=== PATIENT | female | born 1955 | race Caucasian/White ===

== ENCOUNTER 2017-01-04 09:00 | Inpatient (IN) | payer OTHER ==
[~2017-01-04] VITALS: Ht 157.5 cm; Wt 67.0 kg
[2017-01-04 09:02] VITALS: BP 156/77; PULSE 97; RESP 15; TEMP 98.1; O2SAT 98
[2017-01-04] MEDS ORDERED: [UNRECOGNIZED DRUG - REMARK] (09:30)
[2017-01-04] MEDS ORDERED: HYDR12.57 PO (09:30)
[2017-01-04] MEDS ORDERED: GENT0.3S2 EACH EYE (09:30)
[2017-01-04] MEDS ORDERED: GENTAMICIN (09:30)
[2017-01-04] MEDS ORDERED: FLUT1SPR5 EACH NARE (09:30)
--- NOTE | 2017-01-04 09:34 | PD ---
HPI Chief Complaint: Fall Time Seen by Provider: 09:34 Travel History International Travel<30 days: No Contact w/Intl Traveler<30days: No Traveled to known affect area: No History of Present Illness HPI 61-year-old female came to the emergency room with history of slip and fall while she was cleaning her pool. She landed on her left outstretched hand. Since then she has severe pain on her left wrist area. There are some deformity. She has tried to splint it with a flip-flop. Patient denies taking any blood thinners. She drank some coffee at 6:30 in the morning but hasn't eaten anything. Vital signs were otherwise stable. She looks uncomfortable. [facility] Past Medical History Narrative Medical List of her past medical, surgical, social and family history is reviewed from the nursing note. ?: Not Past Surgical History Hysterectomy: Yes Social History Tobacco Use: Yes Allergies-Medications (Allergen,Severity, Reaction): Coded Allergies: Levaquin (Verified Allergy, Severe, Swelling, 01/04/17) Penicillin (Verified Allergy, Severe, Rash, 01/04/17) Bactrim (Verified Allergy, Unknown, 01/04/17) Uncoded Allergies: quinalones (Allergy, Severe, Swelling, 01/04/17) Comments List of her allergies reviewed from the nursing note. Reported Meds & Prescriptions Reported Meds & Active Scripts Active Reported [generic nasal spray ] [gentamicin nasal] Gentamicin Opth Drops 0.3% Soln 1 Drop EACH EYE Q6HR Flonase Nasal [place] (Fluticasone Nasal [place]) 50 Mcg/Act [place] 50 Mcg EACH NARE BID Hydrochlorothiazide 12.5 Mg Cap 12.5 Mg PO DAILY Narrative Medication List of her home medications reviewed from the nursing note. Review of Systems Except as stated in HPI: all other systems reviewed are Neg Physical Exam Narrative GENERAL: Awake, alert, moderate distress SKIN: Focused skin assessment warm/dry. HEAD: Atraumatic. Normocephalic. EYES: Pupils equal and round. No scleral icterus. No injection or drainage. ENT: No nasal bleeding or discharge. Mucous membranes pink and moist. NECK: Trachea midline. No JVD. CARDIOVASCULAR: Regular rate and rhythm. No murmur appreciated. RESPIRATORY: No accessory muscle use. Clear to auscultation. Breath sounds equal bilaterally. GASTROINTESTINAL: Abdomen soft, non-tender, nondistended. Hepatic and splenic margins not palpable. MUSCULOSKELETAL: Deformity of the left wrist. No clubbing. No cyanosis. No edema. Distal pulses and sensations intact. Decreased range of motion due to the pain. NEUROLOGICAL: Awake and alert. No obvious cranial nerve deficits. Motor grossly within normal limits. Normal speech. PSYCHIATRIC: Appropriate mood and affect; insight and judgment normal. Data Data Last Documented VS Vital Signs Date Time Temp Pulse Resp B/P Pulse Ox O2 Delivery O2 Flow Rate FiO2 01/04/17 11:47 132/71 01/04/17 11:16 72 98 Room Air 01/04/17 10:47 17 01/04/17 09:02 98.1 Orders Acetamin-Hydrocod 325-5 Mg ([place] 5-325 (01/04/17 09:45) Ibuprofen (Motrin) (01/04/17 09:45) Wrist, Complete (Wdn1wwq) (01/04/17 ) Hand, Complete (Xqm8ium) (01/04/17 ) Splint Or Brace Apply/Monitor (01/04/17 10:38) Bupivacaine Pf 0.25% Inj (Marcaine Pf 0. (01/04/17 10:45) Lidocaine Pf 1% Inj (Xylocaine-Mpf 1% In (01/04/17 10:45) Wrist, Limited (Ap&Lat) (01/04/17 ) MDM Medical Decision Making Medical Screen Exam Complete: Yes Emergency Medical Condition: Yes Medical Record Reviewed: Yes Differential Diagnosis Distal radius ulna fracture, wrist dislocation, carpal bone fracture Narrative Course 10:16 AM awaiting for the x-ray to be done and resulted. Patient was medicated for pain. 11:47 AM the fracture was attempted to be reduced under hematoma block by me. Please refer to my procedure note. Postreduction x-ray does not show 100% alignment of the distal fracture fragment. I have put a call back to orthopedics again. Awaiting their decision at this point. 12:03 PM I just spoke with the PA of Dr. Thompson and as per him patient be admitted so that the fracture can be reduced intraoperatively tomorrow. They requested the patient to be nothing by mouth after midnight. Procedures Procedure Narrative Hematoma block: The fracture area on the distal left forearm was palpated and cleaned with ChloraPrep. A combination of 0.25% Marcaine with 1% lidocaine 1:1 was injected subdermally to raise a weal. The rest of the 10 mL was injected into the fracture site to achieve hematoma block. Overall patient tolerated the procedure well. Fracture displacement adduction: Manipulation of the fracture was done in order to reduce it once the hematoma block was achieved. Please refer to the above procedure note for the hematoma block. This was done with the help of the [employer] Arvind. Once the anatomic alignment was achieved Sugar tong splint was applied. Awaiting for the postreduction x-ray. EKG Prior to Arrival: No Physician Communication Physician Communication Dr. Thompson's PA Diagnosis Primary Impression: Distal radius fracture, left Qualified Code: S52.532A - Closed Colles' fracture of left radius, initial encounter Admitting Information Admitting Physician Requests: Melissa Peña MD Jan 04, 2017 09:34
[2017-01-04] MEDS ORDERED: IBUPROFEN 600 MG TAB PO ONE (09:45)
[2017-01-04] MEDS ORDERED: ACETAMINOPHEN/HYDROcodone 325 MG/5 MG TAB PO ONE (09:45)
--- NOTE | 2017-01-04 10:22 | RADRPT ---
EXAM DATE/TIME: 01/04/2017 09:57 [facility] COMPARISON: No previous studies available for comparison. INDICATIONS : Fall. Caught self with left hand. Left wrist fracture. MEDICAL HISTORY : None. SURGICAL HISTORY : None. ENCOUNTER: Initial ACUITY: 1 day PAIN SCORE: 8/10 LOCATION: Left wrist FINDINGS: Three view examination of the left hand demonstrates no soft tissue swelling, dislocation, or fractur e. The carpal bones appear intact. The interphalangeal and metacarpophalangeal joints are intact. Bony mineralization is normal. CONCLUSION: Unremarkable examination of the left hand with a known a distal radius and ulna fracture. Hebert Delong MD on January 04, 2017 at 10:20 Board Certified Radiologist. This report was verified electronically.
[2017-01-04] MEDS ORDERED: LIDOCAINE HCL 1% PF 30 ML VIAL INFIL ONE (10:45)
[2017-01-04] MEDS ORDERED: BUPIVACAINE HCL PF 0.25% 10 ML VIAL INFIL ONE (10:45)
--- NOTE | 2017-01-04 11:08 | RADRPT ---
EXAM DATE/TIME: 01/04/2017 09:59 [facility] COMPARISON: No previous studies available for comparison. INDICATIONS : Trauma. MEDICAL HISTORY : None. SURGICAL HISTORY : None. ENCOUNTER: Initial ACUITY: 1 day PAIN SCORE: 8/10 LOCATION: Left wrist FINDINGS: Three view left wrist demonstrates there is a transverse fracture of the distal radius. The distal f ragment is dorsally dislocation with at least 45% degrees of angulation. There is widening of the sc apholunate distance as well. There is ulnar styloid fracture and now positive ulnar variance. CONCLUSION: Transverse distal radial fracture as described above. Hebert Delong MD on January 04, 2017 at 10:19 Board Certified Radiologist. This report was verified electronically.
[2017-01-04 11:16] VITALS: BP 87/48; PULSE 72; O2SAT 98
[2017-01-04 11:47] VITALS: BP 132/71
--- NOTE | 2017-01-04 11:53 | RADRPT ---
EXAM DATE/TIME: 01/04/2017 11:31 [facility] COMPARISON: No previous studies available for comparison. INDICATIONS : Post reduction. MEDICAL HISTORY : None. SURGICAL HISTORY : None. ENCOUNTER: Subsequent ACUITY: 1 day PAIN SCORE: 0/10 LOCATION: Left wrist FINDINGS/ CONCLUSION: The wrist has been casted. On the AP film there is good alignment; however, on the lateral film ther e is still marked posterior displacement of the distal radial fragment. The scapholunate joint remai ns widened and there is dorsal tipping of the lunate. Hebert Delong MD on January 04, 2017 at 11:37 Board Certified Radiologist. This report was verified electronically.
[2017-01-04] MEDS ORDERED: SODIUM CHLORIDE 0.9% FLUSH 10 ML FLUSH IV FLUSH PRN (12:15)
[2017-01-04] MEDS ORDERED: SENNOSIDES 8.6 MG TAB PO PRN (12:15)
[2017-01-04] MEDS ORDERED: MAGNESIUM HYDROXIDE SUSP 30 ML CUP PO PRN (12:15)
[2017-01-04] MEDS ORDERED: LACTULOSE SYRUP 20 GM/30 ML CUP PO PRN (12:15)
[2017-01-04] MEDS ORDERED: BISACODYL 10 MG SUPP RECTAL PRN (12:15)
[2017-01-04] MEDS ORDERED: MORPHINE SULFATE 8 MG/ML INJ IV PUSH PRN (12:15)
[2017-01-04] MEDS ORDERED: diphenhydrAMINE HCL 25 MG CAP PO PRN (12:15)
[2017-01-04] MEDS: ACETAMINOPHEN/HYDROcodone 325 MG/7.5 MG TAB PO PRN ×2 (15:50→20:43)
[2017-01-04 20:00] VITALS: BP 152/97; PULSE 78; RESP 16; TEMP 99.1; O2SAT 99
[2017-01-04] MEDS: DOCUSATE SODIUM 50 MG/SENNA 8.6 MG TAB PO SCH (20:44)
[2017-01-04] MEDS: SODIUM CHLORIDE 0.9% FLUSH 10 ML FLUSH IV FLUSH SCH (20:44)
[2017-01-04] MEDS ORDERED: INSULIN HUMAN REGULAR 1,000 UNITS/10 ML VIAL SQ PRN (23:15)
[2017-01-04] MEDS ORDERED: CHLORHEXIDINE GLUCONATE 2 % 1 PACK (2 CLOTHS) TOPICAL PRN (23:15)
[2017-01-04] MEDS ORDERED: SODIUM CHLORID 0.9% 500 ML IV PRN (23:15)
[2017-01-04] MEDS ORDERED: METOPROLOL TARTRATE 25 MG TAB PO PRN (23:15)
[2017-01-04] MEDS ORDERED: POVIDONE IODINE 5% (ANTISEPSIS KIT) 4 APPLICATIONS EACH NARE PRN (23:15)
[2017-01-04] MEDS ORDERED: LACTATED RINGER'S 1000 ML IV PRN (23:15)
[2017-01-05] VITALS: BP 136/73; PULSE 67; RESP 17; TEMP 99.6; O2SAT 97
[2017-01-05] MEDS: ACETAMINOPHEN/HYDROcodone 325 MG/7.5 MG TAB PO PRN ×3 (02:15→18:32)
[2017-01-05 04:00] VITALS: BP 117/67; PULSE 68; RESP 16; TEMP 98.1; O2SAT 98
[2017-01-05 06:01] LABS: AUTOMATED NEUTROPHIL # 3.7 TH/MM3 (1.8-7.7); BASOPHIL % 0.5 % (0.0-2.0); EOSINOPHIL # 0.2 TH/MM3 (0-0.4); EOSINOPHIL % 2.8 % (0.0-4.0); HEMATOCRIT 42.8 % (35.0-46.0); HEMO FLAGS DIFF FINAL; LYMPHOCYTE # 1.7 TH/MM3 (1.0-4.8); MEAN CELL VOLUME 86.9 FL (80.0-100.0); MEAN CORPUSCULAR HEMOGLOBIN 28.2 PG (27.0-34.0); MEAN CORPUSCULAR HGB CONC 32.5 % (32.0-36.0); MONO % 8.1 % (0.0-8.0); NEUT % 60.6 % (16.0-70.0); PLATELET COUNT 184 TH/MM3 (150-450); RED BLOOD COUNT 4.92 MIL/MM3 (4.00-5.30); RED CELL DISTRIBUTION WIDTH 13.7 % (11.6-17.2); WHITE BLOOD COUNT 6.1 TH/MM3 (4.0-11.0)
--- NOTE | 2017-01-05 06:30 | PD.ORT.PN ---
Subjective Subjective Remarks Fall yesterday when cleaning pool. Landed on left wrist. Deformity and pain Objective Vitals Vital Signs Date Time Temp Pulse Resp B/P Pulse Ox O2 Delivery O2 Flow Rate FiO2 01/05/17 04:00 98.1 68 16 117/67 98 01/05/17 00:00 99.6 67 17 136/73 97 01/04/17 20:00 99.1 78 16 152/97 99 01/04/17 11:47 132/71 01/04/17 11:16 72 87/48 98 Room Air 01/04/17 10:47 17 01/04/17 10:47 17 01/04/17 09:02 98.1 97 15 156/77 98 I/O 01/04/17 01/04/17 01/04/17 01/05/17 01/05/17 01/05/17 07:00 15:00 23:00 07:00 15:00 23:00 Intake Total 480 ml 240 ml Balance 480 ml 240 ml Intake Oral 480 ml 240 ml # Voids 3 2 # Bowel Movements 0 0 Result Diagram: 01/05/17 0554 Imaging Last 72 hours Impressions Wrist X-Ray 01/04/17 0000 Signed Impressions: Service Date/Time: Wednesday, January 04, 2017 11:31 - CONCLUSION: The wrist has been casted. On the AP film there is good alignment; however, on the lateral film there is still marked posterior displacement of the distal radial fragment. The scapholunate joint remains widened and there is dorsal tipping of the lunate. Hebert Delong MD Wrist X-Ray 01/04/17 0000 Signed Impressions: Service Date/Time: Wednesday, January 04, 2017 09:59 - CONCLUSION: Transverse distal radial fracture as described above. Hebert Delong MD Hand X-Ray 01/04/17 0000 Signed Impressions: Service Date/Time: Wednesday, January 04, 2017 09:57 - CONCLUSION: Unremarkable examination of the left hand with a known a distal radius and ulna fracture. Hebert Delong MD Objective Remarks Bilateral lower extremity is: Full range of motion neurovascularly intact Right upper extremity: Full range of motion and neurovascularly intact Left upper extremity: No pain with shoulder or elbow range of motion. Splint in place. Intact sensation of the radial and ulna nerve distributions with good capillary refills. She is slight diminished sensation over her in index finger over the distal phalanges Assessment & Plan Assessment and Plan Left distal radius fracture Surgery today for ORIF. Nothing by mouth Sign consents Plan for discharge this afternoon when pain is controlled and follow-up with Dr. Thompson or EDU in 2 weeks. Nonweightbearing and maintain splint until office visit Abhijit Yost Jr. Jan 05, 2017 06:30
[2017-01-05 06:37] LABS: POTASSIUM 3.6 MEQ/L (3.5-5.1)
--- NOTE | 2017-01-05 06:45 | HHI.HP ---
History of Present Illness Service Dr. Thompson orthopedic service Primary Care Physician Non-Staff Admission Diagnosis Left distal radius fracture Diagnoses: (1) Distal radius fracture, left Diagnosis: Principal History of Present Illness Sharyn is a 61-year-old female who is well-nourished well-developed in no acute distress. She was cleaning her pool yesterday when she tripped and fell and landed on her left wrist. She had immediate pain and deformity. She came to the emergency room for x-rays and her wrist was diagnosed with a left distal radius fracture. She states she has had issues in the past with her navicular bone. She does have some limited range of motion with the left wrist. 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 Has a history of left ACL repair and left olecranon fracture. She has no other complaints Review of Systems Constitutional: DENIES: Fever, Chills, Change in appetite Endocrine: DENIES: Heat/cold intolerance Eyes: DENIES: Blurred vision, Eye pain Respiratory: DENIES: Cough, Wheezing, Hemoptysis, Shortness of breath Cardiovascular: DENIES: Chest pain, Palpitations, Syncope, Dyspnea on Exertion Gastrointestinal: DENIES: Abdominal pain, Constipation, Nausea, Vomiting, Difficulty Swallowing Genitourinary: DENIES: Dyspareunia, Urinary incontinence, Urgency, Hematuria, Dysuria, Nocturia, Vaginal discharge Musculoskeletal: COMPLAINS OF: Joint pain, Joint Swelling Integumentary: COMPLAINS OF: Breast skin changes, DENIES: Abnormal pigmentation, Pruritus, Rash Hematologic/lymphatic: DENIES: Bruising, Lymphadenopathy Immunologic/allergic: DENIES: Eczema, Urticaria Neurologic: DENIES: Abnormal gait, Headache, Localized weakness, Paresthesias, Seizures, Speech Problems, Tremor, Poor Balance Psychiatric: DENIES: Anxiety, Confusion, Mood changes Except as stated in HPI: all other systems reviewed are Neg Past Family Social History Allergies: Coded Allergies: Levaquin (Verified Allergy, Severe, Swelling, 01/04/17) Penicillin (Verified Allergy, Severe, Rash, 01/04/17) Bactrim (Verified Allergy, Unknown, 01/04/17) Uncoded Allergies: quinalones (Allergy, Severe, Swelling, 01/04/17) Past Medical History Hypertension Multiple surgeries to left eye with stents Past Surgical History Right ACL repair Right olecranon fracture Multiple stents to left eye Reported Medications [generic nasal spray ] [gentamicin nasal] Gentamicin Opth Drops 0.3% Soln 1 Drop EACH EYE Q6HR Flonase Nasal [place] (Fluticasone Nasal [place]) 50 Mcg/Act [place] 50 Mcg EACH NARE BID Hydrochlorothiazide 12.5 Mg Cap 12.5 Mg PO DAILY Family History Noncontributory Social History Denies smoking or illicit drug use. Occasional alcohol use over the weekend Physical Exam Vital Signs Vital Signs Date Time Temp Pulse Resp B/P Pulse Ox O2 Delivery O2 Flow Rate FiO2 01/05/17 04:00 98.1 68 16 117/67 98 01/05/17 00:00 99.6 67 17 136/73 97 01/04/17 20:00 99.1 78 16 152/97 99 01/04/17 11:47 132/71 01/04/17 11:16 72 87/48 98 Room Air 01/04/17 10:47 17 01/04/17 10:47 17 01/04/17 09:02 98.1 97 15 156/77 98 Physical Exam GENERAL: This is a well-nourished, well-developed patient, in no apparent distress. SKIN: No rashes, ecchymoses or lesions. Cool and dry. HEAD: Atraumatic. Normocephalic. No temporal or scalp tenderness. EYES: Pupils equal round and reactive. Extraocular motions intact. No scleral icterus. No injection or drainage. Strabismus left eye ENT: Nose without bleeding, purulent drainage or septal hematoma. Throat without erythema, tonsillar hypertrophy or exudate. Uvula midline. Airway patent. NECK: Trachea midline. No JVD or lymphadenopathy. Supple, nontender, no meningeal signs. CARDIOVASCULAR: Regular rate and rhythm without murmurs, gallops, or rubs. RESPIRATORY: Clear to auscultation. Breath sounds equal bilaterally. No wheezes , rales, or rhonchi. GASTROINTESTINAL: Abdomen soft, non-tender, nondistended. No hepato-splenomegaly , or palpable masses. No guarding. MUSCULOSKELETAL: Bilateral lower extremities: Full range of motion neurovascularly intact Right upper extremity: Full range of motion and neurovascularly intact Left upper extremity: No pain to her shoulder range of motion. No pain to palpation of her elbow. Sugar tong splint intact. Intact sensation of her radial ulnar and median nerve distributions good capillary refills NEUROLOGICAL: Awake and alert. Cranial nerves II through XII intact. Motor and sensory grossly within normal limits. Five out of 5 muscle strength in all muscle groups. Normal speech. Laboratory Laboratory Tests Test 01/05/17 05:54 White Blood Count 6.1 Red Blood Count 4.92 Hemoglobin 13.9 Hematocrit 42.8 Mean Corpuscular Volume 86.9 Mean Corpuscular Hemoglobin 28.2 Mean Corpuscular Hemoglobin 32.5 Concent Red Cell Distribution Width 13.7 Platelet Count 184 Mean Platelet Volume 7.2 Neutrophils (%) (Auto) 60.6 Lymphocytes (%) (Auto) 28.0 Monocytes (%) (Auto) 8.1 Eosinophils (%) (Auto) 2.8 Basophils (%) (Auto) 0.5 Neutrophils # (Auto) 3.7 Lymphocytes # (Auto) 1.7 Monocytes # (Auto) 0.5 Eosinophils # (Auto) 0.2 Basophils # (Auto) 0.0 CBC Comment DIFF FINAL Differential Comment Result Diagram: 01/05/17 0554 Imaging Last 72 hours Impressions Wrist X-Ray 01/04/17 0000 Signed Impressions: Service Date/Time: Wednesday, January 04, 2017 11:31 - CONCLUSION: The wrist has been casted. On the AP film there is good alignment; however, on the lateral film there is still marked posterior displacement of the distal radial fragment. The scapholunate joint remains widened and there is dorsal tipping of the lunate. Hebert Delong MD Wrist X-Ray 01/04/17 0000 Signed Impressions: Service Date/Time: Wednesday, January 04, 2017 09:59 - CONCLUSION: Transverse distal radial fracture as described above. Hebert Delong MD Hand X-Ray 01/04/17 0000 Signed Impressions: Service Date/Time: Wednesday, January 04, 2017 09:57 - CONCLUSION: Unremarkable examination of the left hand with a known a distal radius and ulna fracture. Hebert Delong MD Assessment and Plan Problem List: (1) Distal radius fracture, left Status: Acute Assessment and Plan Due to displace fracture of left distal radius, surgery is necessary for open reduction internal fixation. She will remain nothing by mouth and surgery will be performed this morning with Dr. Thompson. After surgery she will be resplinted and will the nonweightbearing on the left upper extremity. Once pain is controlled she will be discharged home today. She will follow-up with Dr. Thompson in 2 weeks for repeat x-rays and plan suture removal Discharge Planning She'll be discharged to home with splint and sling. She will be nonweightbearing on the left upper extremity. Problem Qualifiers (1) Distal radius fracture, left: Qualified Code: S52.532A - Closed Colles' fracture of left radius, initial encounter Abhijit Yost Jr. Jan 05, 2017 06:45
[2017-01-05] MEDS ORDERED: ceFAZolin INJ 1,000 MG VIAL ONE (07:00)
[2017-01-05] MEDS ORDERED: SODIUM CHLOR 0.9% 250 ML INJ 250 ML ONE (07:00)
[2017-01-05] MEDS ORDERED: GENTAMICIN SULFATE 80 MG/2 ML VIAL ONE (07:00)
[2017-01-05] MEDS ORDERED: VANCOMYCIN HCL 1000 MG VIAL ONE (07:00)
[2017-01-05] MEDS ORDERED: ACETAMINOPHEN 1000 MG/100 ML VIAL IV ONE (07:05)
[2017-01-05] MEDS ORDERED: DEXAMETHASONE SOD PHOS 4 MG/ML VIAL ONE (07:06)
[2017-01-05] MEDS ORDERED: BUPIVACAINE/EPINEPHRINE 0.25% PF 30 ML VIAL INFIL ONE (07:36)
[2017-01-05] MEDS ORDERED: CLINDAMYCIN PHOS 600 MG/4 ML VIAL ONE (07:55)
--- NOTE | 2017-01-05 08:18 | PD.OP ---
cc: Skip Thompson MD Operative Report Date of Surgery: Jan 05, 2017 Preoperative Diagnosis: Displaced left distal radius fracture Postoperative Diagnosis: Procedure: Open reduction internal fixation left distal radius Anesthesia: Gen. Surgeon: Skip Thompson Collection Correspondent(s): DIONI Elizalde PA-C The surgical procedure was assisted by my physician program services assistant. My P.A. presence was necessary throughout this case for the manipulation and positioning of the surgical extremity. My P.A. was assisting me throughout the duration of this procedure. The skill set of a physician program services assistant was medically necessary to complete this procedure. During the surgical case the surgical appliances salesperson was working at the back table and the physician program services assistant was directly assisting me. Operation and Findings: Plan of activity: Fiberglas splint 2 weeks, then removable wrist brace Patient was seen and evaluated preoperatively and found to have a displaced left distal radius fracture. Informed consent was obtained after detailed discussion of risk and benefits including bleeding, infection, injury to arteries, nerves, and blood vessels, weakness and numbness of hand, and tendon rupture. Informed consent was obtained. Patient received IV antibiotics prior to incision. Timeout procedure was performed. Operative extremity was prepped with alcohol followed by Hibiclens and draped usual sterile fashion. A standard volar approach to the distal radius was utilized. A 3 inch incision was made over the FCR tendon. Tendon sheath was opened. Pronator quadratus was elevated up. The fracture site was now visualized. The fracture did have intra-articular extension. Traction was applied. The articular surface was reduced. Fracture fragments were manipulated to achieve excellent reduction. K wires were used to hold provisional fixation. Fluoroscopy confirmed appropriate alignment of fracture. An ITS variable angle distal radius plate was selected. Plate was provisionally fixed to bone with K wires. 2.7 cortical screws were used to compress plate to bone. Fluoroscopy confirmed appropriate alignment of fracture with well-placed hardware. Multiple 2.4 locking screws were now placed distally. Screws were predrilled and measured for appropriate length. 2 additional screws were placed into the shaft. K wires were removed. Final fluoroscopy revealed excellent of fracture with well- placed hardware. The wound was thoroughly irrigated with sterile saline. Subcutaneous tissue was closed with 3-0 Vicryl and skin was closed with 3-0 nylon. Sterile dressings were applied with Xeroform, 4 x 4, soft roll, and a well padded volar splint. Patient was awakened and transferred to recovery room in stable condition Skip Thompson MD Jan 05, 2017 08:18
[2017-01-05] MEDS ORDERED: HYDR-3288 PO (08:19)
[2017-01-05] MEDS ORDERED: DO NOT ADM ANY ANTICOAGULANT DRUGS PRN (08:33)
[2017-01-05] MEDS ORDERED: fentaNYL CITRATE 250 MCG/5 ML AMP ONE (08:39)
[2017-01-05] MEDS ORDERED: *morphine SULFATE 8 MG/ML PERIprocedure ONLY ONE ×2 (08:46→09:15)
[2017-01-05] MEDS: DOCUSATE SODIUM 50 MG/SENNA 8.6 MG TAB PO SCH (09:00)
[2017-01-05] MEDS: SODIUM CHLORIDE 0.9% FLUSH 10 ML FLUSH IV FLUSH SCH (09:00)
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
[2017-01-05 10:00] VITALS: BP 144/73; PULSE 84; RESP 18; TEMP 96.8; O2SAT 99
[2017-01-05 12:00] VITALS: BP 98/53; PULSE 86; RESP 18; TEMP 97.8; O2SAT 98
[2017-01-05 12:50] VITALS: O2SAT 98
--- NOTE | 2017-01-05 13:43 | RADRPT ---
EXAM DATE/TIME: 01/05/2017 08:03 [facility] COMPARISON: No previous studies available for comparison. INDICATIONS : ORIF left wrist fracture. MEDICAL HISTORY : Unobtainable. SURGICAL HISTORY : Unobtainable. ENCOUNTER: Subsequent ACUITY: 1 day PAIN SCORE: Non-responsive. LOCATION: Left wrist. CONCLUSION: Fluoroscopic images during placement of T-shaped compression plate along the radius fixating fracture , in near anatomic. Ulnar styloid fracture seen. Abhi Tate MD on January 05, 2017 at 13:41 Board Certified Radiologist. This report was verified electronically.
[2017-01-05] MEDS ORDERED: PROPOFOL 200 MG/20 ML AMP IV ONE (14:42)
[2017-01-05] MEDS ORDERED: ONDANSETRON HCL 4 MG/2 ML VIAL IV PUSH ONE (14:42)
[2017-01-05 16:00] VITALS: BP 132/84; PULSE 87; RESP 18; TEMP 97.4; O2SAT 97
--- NOTE | 2017-01-05 18:41 | EKG ---
Date Performed: 01/04/2017 Time Performed: 22:39:02 PTAGE: 61 years EKG: Sinus rhythm POSSIBLE RIGHT VENTRICULAR CONDUCTION DELAY BORDERLINE ECG NO PREVIOUS TRACING DOCTOR: Ethan Bull Interpretating Date/Time 01/05/2017 18:39:43
== END 2017-01-05 19:13 | disposition home or self-care (01) | DRG 512 ==
LOC: NEPD 09:00 → NEDA 12:04 → N06A 19:32
PROVIDERS: ADMIT Orthopaedic Surgery Orthopaedic Trauma; ATTEND Orthopaedic Surgery Orthopaedic Trauma
PROC: 0PSJ04Z Reposition Left Radius with Internal Fixation Device, Open Approach (ICD-10-PCS; principal; 2017-01-05 07:19)
DX: S52.532A Colles' fracture of left radius, initial encounter for closed fracture (principal); I10 Essential (primary) hypertension; S52.602A Unspecified fracture of lower end of left ulna, initial encounter for closed fracture; Z72.0 Tobacco use; W01.0XXA Fall on same level from slipping, tripping and stumbling without subsequent striking against object, initial encounter; Y93.89 Activity, other specified; Y92.008 Other place in unspecified non-institutional (private) residence as the place of occurrence of the external cause; Y99.9 Unspecified external cause status
CPT/HCPCS: 25605; 73100; 73110; 73130; 76000; 80048; 85025; 93005; 94150; C1713; J0131; J0690; J1100; J1580; J2270; J2405; J3010; J3370; J7050